=== PATIENT | male | born 1955 | race African-American/Black ===

== ENCOUNTER 2024-05-31 13:33 | Emergency (ER) | payer MEDICARE, MEDICAID ==
[~2024-05-31] VITALS: Ht 182.9 cm; Wt 90.0 kg
[2024-05-31 14:28] VITALS: TEMP 37.05852
[2024-05-31] MEDS: HALOPERIDOL LACTATE 5MG/ML VIAL IM ONE ×2 (15:15→15:29)
[2024-05-31 18:04] VITALS: O2SAT 99
[2024-05-31] MEDS: LORAZEPAM 2MG/ML INJ IM ONE (20:36)
[2024-05-31 20:51] LABS: BASOPHILS % 0.5 % (0.0-2.0); EOSINOPHILS % 1.2 % (0.0-5.0); HEMATOCRIT. 52.8 % (42.0-52.0); HEMOGLOBIN. 17.9 g/dL (14.0-18.0); LYMPHOCYTES % 26.6 % (20.0-50.0); MEAN CORPUSCULAR HEMOGLOBIN 31.9 pg (28.0-32.0); MEAN CORPUSCULAR HGB CONC 33.9 g/dL (31.0-37.0); MEAN CORPUSCULAR VOLUME 94.1 fL (80.0-94.0); MEAN PLATELET VOLUME 7.6 fl (7.4-10.4); MONOCYTES % 4.6 % (2.0-8.0); NEUTROPHILS % 67.1 % (40.0-76.0); PLATELET 387 x1000/uL (130-400); RED CELL DISTRIBUTION WIDTH 15.1 % (11.6-14.6); WHITE BLOOD COUNT 10.4 x1000/uL (4.5-11.0)
[2024-05-31 20:57] LABS: CARBON DIOXIDE 20 mEq/L (21-32); CHLORIDE 108 mEq/L (98-107); POTASSIUM 4.1 mEq/L (3.5-5.1); SODIUM 142 mEq/L (136-145)
[2024-05-31 20:58] LABS: CALCIUM 9.1 mg/dL (8.7-10.4)
[2024-05-31 21:02] LABS: CREATININE 1.2 mg/dL (0.6-1.3)
[2024-05-31 21:03] LABS: ETHANOL BLOOD 227 mg/dL (<10); GLUCOSE 57 mg/dL (70-105); UREA NITROGEN BLOOD 14 mg/dL (9-23)
[2024-05-31] MEDS: CHLORDIAZEPOXIDE 25MG CAPSULE PO NR (22:41)
[2024-05-31] MEDS: CHLORDIAZEPOXIDE 25MG CAPSULE PO ONE (22:46)
[2024-05-31] MEDS: LORAZEPAM 2MG/ML INJ IM NR (22:47)
[2024-05-31 22:49] VITALS: BP 150/90; PULSE 90; RESP 18; O2SAT 100
== END 2024-05-31 23:39 | disposition home or self-care (01) ==
LOC: ER 14:21
DX: F23 Brief psychotic disorder (principal)
CPT/HCPCS: 80048; 80320; 85025; 36415; 70450; 93005; 96372; 99285; J1630; G0480

== ENCOUNTER 2024-11-09 11:37 | Emergency (ER) | payer MEDICARE, MEDICAID ==
[~2024-11-09] VITALS: Ht 175.3 cm; Wt 72.0 kg
[2024-11-09 11:37] VITALS: O2SAT 100
[2024-11-09 11:44] VITALS: BP 145/100; PULSE 90; RESP 18; TEMP 36.7; O2SAT 99
[2024-11-09] MEDS: ACETAMINOPHEN 325MG TABLET PO ONE (12:30)
[2024-11-09] MEDS: BACITRACIN ZINC OINT UDPKT TOP ONE (13:30)
[2024-11-09] MEDS: LIDOCAINE HCL/PF 1% 10 MG/ML 5ML VIAL INFIL ONE (13:30)
[2024-11-09] MEDS ORDERED: BO1 TP (14:21)
== END 2024-11-09 14:34 | disposition home or self-care (01) ==
LOC: ER 11:37
DX: S61.412A Laceration without foreign body of left hand, initial encounter (principal); F12.10 Cannabis abuse, uncomplicated; Z88.6 Allergy status to analgesic agent; W25.XXXA Contact with sharp glass, initial encounter; Y93.89 Activity, other specified; Y92.89 Other specified places as the place of occurrence of the external cause; Y99.8 Other external cause status
CPT/HCPCS: 99283; 73130; 12002; J2003

== ENCOUNTER 2024-11-22 09:53 | Emergency (ER) | payer OTHER, MEDICAID ==
[~2024-11-22] VITALS: Ht 175.3 cm; Wt 74.8 kg
[~2024-11-22 09:53] MED LIST: BO1 TP
[2024-11-22 09:55] VITALS: O2SAT 100
[2024-11-22 10:23] LABS: BASOPHILS % 0.4 % (0.0-2.0); EOSINOPHILS % 2.9 % (0.0-5.0); HEMATOCRIT. 50.6 % (42.0-52.0); HEMOGLOBIN. 17.3 g/dL (14.0-18.0); LYMPHOCYTES % 32.9 % (20.0-50.0); MEAN CORPUSCULAR HEMOGLOBIN 32.8 pg (28.0-32.0); MEAN CORPUSCULAR HGB CONC 34.2 g/dL (31.0-37.0); MEAN PLATELET VOLUME 7.7 fl (7.4-10.4); MONOCYTES % 8.1 % (2.0-8.0); NEUTROPHILS % 55.7 % (40.0-76.0); PLATELET 421 x1000/uL (130-400); RED BLOOD CELL COUNT 5.27 mill/uL (4.7-6.1); RED CELL DISTRIBUTION WIDTH 14.4 % (11.6-14.6); WHITE BLOOD COUNT 5.7 x1000/uL (4.5-11.0)
[2024-11-22 10:31] LABS: CHLORIDE 104 mEq/L (98-107); POTASSIUM 4.5 mEq/L (3.5-5.1); SODIUM 140 mEq/L (136-145)
[2024-11-22 10:32] LABS: CALCIUM 9.9 mg/dL (8.7-10.4); CARBON DIOXIDE 27 mEq/L (21-32)
[2024-11-22 10:37] LABS: CREATININE 1.3 mg/dL (0.6-1.3); GLUCOSE 121 mg/dL (70-105); UREA NITROGEN BLOOD 11 mg/dL (9-23)
[2024-11-22 10:42] VITALS: BP 188/98; PULSE 82; RESP 16; TEMP 36.8; O2SAT 98
== END 2024-11-22 11:14 | disposition home or self-care (01) ==
LOC: ER 09:53
DX: S61.412D Laceration without foreign body of left hand, subsequent encounter (principal); F10.90 Alcohol use, unspecified, uncomplicated; F12.90 Cannabis use, unspecified, uncomplicated; Z88.6 Allergy status to analgesic agent; X58.XXXD Exposure to other specified factors, subsequent encounter; Y90.9 Presence of alcohol in blood, level not specified
CPT/HCPCS: 36415; 80048; 85025; 99283

== ENCOUNTER 2025-03-14 15:28 | Emergency (ER) | payer MEDICARE, MEDICAID ==
[~2025-03-14] VITALS: Ht 175.3 cm; Wt 80.0 kg
[2025-03-14 15:34] VITALS: O2SAT 99
[2025-03-14] MEDS: METOCLOPRAMIDE HCL 10MG/2ML VIAL IV ONE (18:08)
[2025-03-14] MEDS: SODIUM CHLORIDE 0.9% 1,000 ML IV ONE (18:08)
[2025-03-14 19:21] LABS: BASOPHILS % 0.7 % (0.0-2.0); EOSINOPHILS % 2.5 % (0.0-5.0); HEMATOCRIT. 46.7 % (42.0-52.0); HEMOGLOBIN. 15.8 g/dL (14.0-18.0); LYMPHOCYTES % 22.7 % (20.0-50.0); MEAN PLATELET VOLUME 7.9 fl (7.4-10.4); MONOCYTES % 5.6 % (2.0-8.0); NEUTROPHILS % 68.5 % (40.0-76.0); PLATELET 387 x1000/uL (130-400); RED BLOOD CELL COUNT 4.96 mill/uL (4.7-6.1); RED CELL DISTRIBUTION WIDTH 14.4 % (11.6-14.6)
[2025-03-14 19:33] LABS: INR 1.1
[2025-03-14 19:42] LABS: CREATININE 1.1 mg/dL (0.6-1.3); UREA NITROGEN BLOOD 8 mg/dL (9-23)
[2025-03-14 19:43] LABS: TROPONIN I HIGH SENSITIVITY 10 ng/L (3.0-53)
[2025-03-14 19:44] LABS: ASPARTATE AMINOTRANSFERASE 16 IU/L (<34); BILIRUBIN DIRECT 0.2 mg/dL (<=3.0)
[2025-03-14 19:45] LABS: BILIRUBIN TOTAL 0.6 mg/dL (0.1-1.0); PROTEIN TOTAL 7.5 g/dL (6.0-8.3)
[2025-03-14] MEDS ORDERED: METO-293 MT (20:09)
[2025-03-14 20:11] VITALS: BP 179/101; PULSE 84; RESP 16; TEMP 37.1; O2SAT 99
== END 2025-03-14 20:11 | disposition left against medical advice (07) ==
LOC: ER 15:28
DX: R07.2 Precordial pain (principal); R06.6 Hiccough; F10.90 Alcohol use, unspecified, uncomplicated; F12.90 Cannabis use, unspecified, uncomplicated; I10 Essential (primary) hypertension; Z88.6 Allergy status to analgesic agent; Y90.9 Presence of alcohol in blood, level not specified
CPT/HCPCS: 80076; 80048; 80320; 83880; 83690; 83735; 85025; 85610; 84484; 36415; 71045; 73562; 74176; 93005; 96361; 96374; 99285; J2765; J7030; G0480